=== PATIENT | female | born 1970 | race Caucasian/White ===

== ENCOUNTER 2021-12-25 12:54 | Emergency (ER) | payer BC ==
[~2021-12-25 12:54] MED LIST: K-DUR TAB 10 M10 MEQ PO; OMNICEF 300 MG300 MG PO; PREDNISONE50 MG PO; TESSALON PERLE100 MG PO; VENTOLIN HFA 66.7 GM INH; ZOFRAN ODT 4 MG4 MG PO; ZOFRAN4 MG PO
== END 2021-12-25 15:20 | disposition home or self-care (01) ==
LOC: ER1 12:54
DX: R51.9 Headache, unspecified (principal); R11.0 Nausea; I10 Essential (primary) hypertension; Z88.2 Allergy status to sulfonamides
CPT/HCPCS: 96374; 96375; 99283; J1200; J1885; J2765